=== PATIENT | female | born 1980 | race Caucasian/White ===

== ENCOUNTER 2019-02-23 10:17 | Inpatient (IN) | payer MEDICAID ==
[~2019-02-23] VITALS: Ht 152.4 cm; Wt 112.2 kg
[~2019-02-23 10:17] MED LIST: HYDR250V5 IM; IBUP-1542 PO; PRENAT PO
[2019-02-23 10:33] VITALS: BP 182/103; PULSE 98; RESP 18; Ht 152.4 cm; Wt 112.2 kg
[2019-02-23] MEDS ORDERED: LACTATED RINGER'S 1,000 ML IV SCH (14:12)
[2019-02-23] MEDS ORDERED: LACTATED RINGER'S 1,000 ML IV PRN (14:12)
[2019-02-23] MEDS ORDERED: MISOPROSTOL 200 MCG TAB PR PRN ×2 (14:30→22:00)
[2019-02-23] MEDS ORDERED: OXYTOCIN 30 UNITS/LR 500 ML IV PRN ×2 (14:30→22:00)
[2019-02-23] MEDS ORDERED: OXYTOCIN 30 UNITS/LR 500 ML IV SCH ×4 (14:30→21:37)
[2019-02-23] MEDS ORDERED: IBUPROFEN 600 MG TAB PO PRN (14:30)
[2019-02-23] MEDS ORDERED: BUTORPHANOL 2 MG INJ IV PRN (14:30)
[2019-02-23] MEDS ORDERED: AMPICILLIN 2 GM/NS (PMX) 100 ML IV ONE (14:30)
[2019-02-23] MEDS ORDERED: CARBOPROST 250 MCG INJ IM PRN ×2 (14:30→22:00)
[2019-02-23] MEDS ORDERED: METHYLERGONOVINE 0.2 MG INJ IM PRN ×2 (14:30→22:00)
[2019-02-23] MEDS ORDERED: LIDOCAINE 1% (MPF) 30 ML INJ INJ PRN (14:30)
[2019-02-23] MEDS ORDERED: MISOPROSTOL 50 MCG CAPSULE PO PRN (16:30)
[2019-02-23] MEDS ORDERED: AMPICILLIN 1 GM/NS (PMX) 50 ML IV SCH (18:30)
--- NOTE | 2019-02-23 19:58 | HP ---
Date/Time of Note Date/Time of Note DATE: 02/23/19 TIME: 19:55 OB - History Hx of Present Free Text/Dictation 38 years old is 0-3 with single intrauterine at 39 weeks with a ELLEN of 03/01/2019 complaining of uterine contractions. She states good movement. She denies nausea, vomiting, shortness of breath, chest pain, headache, visual changes, vaginal bleeding or LOF. Chief Complaint: Uterine contractions Estimated Due Date: Mar 01, 2019 : 6 Para: 3 Spontaneous : 2 Therapeutic : 0 Ultrasounds: No ultrasounds Obstetrical Complications: None Medical Complications: None Past Family/Social History * Past Medical, Surgical, Family and Obstetric Histories reviewed from chart. Blood Type: O+ Rubella: immune RPR/VDRL: Negative GBS Status: Positive HBsAG: Negative OB Admission Exam Vital Signs Vital Signs Vital Signs Date Temp Pulse Resp B/P (MAP) Pulse Ox O2 O2 Flow FiO2 Time Delivery Rate 02/23/19 98.1 98 18 182/103 Room Air 10:33 (129) Physical Exam HEENT: WNL Heart: Rhythm Normal Abdomen: WNL Extremities: Normal Cervical Dilatation: 1cm Effacement: 50% Station: -2 Membranes: Intact Heart Rate: 130's Accelerations: Accelerations Present Decelerations: No Decelerations Varibility: Moderate Contractions on Admission: < 5 Minutes Apart Intensity: Moderate Last 72 hours Lab Results CBC & BMP 02/23/19 11:35 Liver Function Test 02/23/19 11:35 Alanine Aminotransferase (ALT/SGPT) 9 L Albumin 3.4 Alkaline Phosphatase 173 H Aspartate Amino Transf (AST/SGOT) 23 Direct Bilirubin 0.00 Total Protein 6.7 OB Assessment/Plan Other plan: 38 years old -0-2-3 with oligohydramnios (5.9 cm) in early labor - FHR: No sign of metabolic acidosis- Category I - Continuous EFM, toco - CBC, blood type and screen - Cytotec per protocol - Analgesia options with R/B/A discussed in detail with patient - Epidural per patient request - Please see the orders - O+/Rubella: Immune - GBS:Positive, ampicillin ordered Admission, procedures, expectations, risks and possible complications have been discussed in detail with the patient. Risk of vaginal delivery including but not limited to bleeding, infection, cervical laceration, placental retention, injury to fetus, blood transfusion, blood transfusion related infection, risk of anesthesia, adhesion, cervical laceration, episiotomy/laceration, possible ce sarean delivery with risk of bleeding, infection, injury to other organs (bowel, bladder, ureter, vessels, nerves), injury to fetus, blood transfusion, blood transfusion related infection, risk of anesthesia, scar and hernia formation, needs for future , removal of uterus or any other indicated surgery discussed with the patient. She expressed understanding and repeats the risks. All of her questions were answered. She signed the informed consent. PHYSICIAN'S VERIFICATION OF INFORMED CONSENT The patient was counseled regarding the procedure, its indications, risks, potential complications and alternatives and any questions were answered. Consent was obtained. PLANNED PROCEDURE/TREATMENT: Vaginal delivery, episiotomy, repair of laceration possible delivery [] PHYSICIAN'S VERIFICATION OF INFORMED CONSENT FOR BLOOD TRANSFUSION: There is a reasonable possibility that blood transfusion will be necessary as a result of the patient's procedure. I have discussed the following with the patient/patient's legal fulfillment representative: An explanation of the benefits and risks of the transfusion of blood or blood products and the possible alternatives. All questions have been answered to the patient's satisfaction. INFORMED CONSENT:The patient has been informed of: The nature of the proposed care, treatment, services, medications, interventions or procedures. Potential benefits, risks or side effects, including potential problems related to recuperation. The likelihood of achieving care treatment and service goals. Reasonable alternatives to the proposed care, treatment and service. The relevant risks, benefits and side effects related to alternatives, incl uding the possible results of not receiving care, treatment and services. When indicated, any limitations on the confidentiality of information learned from or about the patient. If appropriate, the risks, benefits and alternatives of the drugs to be used for sedation/analgesia including moderate sedation. If appropriate, patient has been provided information on the risks, benefits and alternatives to the transfusion of blood and/or blood products. If appropriate, patient has been provided information regarding the [employer]ets[employer] Blood Act. JACQUE SCHROEDER Feb 23, 2019 19:58
--- NOTE | 2019-02-23 20:01 | LDN ---
Date/Time of Note Date/Time of Note DATE: 02/23/19 TIME: 19:58 Delivery Summary 38 years old at 39 weeks delivered a viable female over intact perineum. Nose and mouth suctioned. Rest of body delivered. Cord clamped and cut after stopping pulsation. Placenta delivered intact and spontaneously with three-vessel cord. Patient tolerated procedure well Time of delivery 19:26 Weight 7 pound 9 at 1 minutes and 9 at 5 minutes EBL 200 ml Weeks of Gestation 39 weeks Placenta Delivered: Spontaneously Meconium: none Episiotomy: No Anesthesia type: Epidural Estimated blood loss: 200 Sponge & Needle done & correct: Yes All needle counts correct: Yes Any foreign bodies felt in the: No Infant Delivery Information Sex Sex: female Apgars 1 Minute: 9 5 Minute: 9 10 Minute: 10 Suctioning Nose & mouth suctioned at lela: Yes Umbilical Cord Umbilical cord with: 3 Vessels Cord presentations: no nuchal cord Cord Blood was obtained: Yes Mother & Baby Disposition Disposition Mom & Baby to Maternity; Good: Yes JACQUE SCHROEDER Feb 23, 2019 20:00
[2019-02-23] MEDS ORDERED: LACTATED RINGER'S 1,000 ML IV* SCH (21:37)
[2019-02-23] MEDS ORDERED: ACETAMINOPHEN 325 MG TAB PO PRN ×2 (22:00)
[2019-02-23] MEDS ORDERED: WITCH HAZEL/GLYCERIN PAD PR PRN (22:00)
[2019-02-23] MEDS ORDERED: MAGNESIUM HYDROXIDE 30ML CUP PO PRN (22:00)
[2019-02-23] MEDS ORDERED: SENNA/DOCUSATE NA (8.6MG/50MG) TAB PO PRN (22:00)
[2019-02-23] MEDS ORDERED: BENZOCAINE 20% 56 ML SPRAY TOP PRN (22:00)
[2019-02-23] MEDS ORDERED: ONDANSETRON 4 MG INJ IV PRN (22:00)
[2019-02-23] MEDS ORDERED: DIBUCAINE 1% 30 GM OINT TOP PRN (22:00)
[2019-02-23 22:10] VITALS: BP 144/71; PULSE 74; RESP 20
[2019-02-23] MEDS: LACTATED RINGER'S 1,000 ML IV* SCH (22:10)
[2019-02-23] MEDS: IBUPROFEN 600 MG TAB PO PRN (23:49)
[2019-02-23] MEDS: LANOLIN HPA 1 PKT TOP PRN (23:59)
[2019-02-24 04:00] VITALS: BP 120/59; PULSE 72; RESP 18
[2019-02-24] MEDS: LACTATED RINGER'S 1,000 ML IV* SCH (06:10)
[2019-02-24] MEDS: IBUPROFEN 600 MG TAB PO PRN ×2 (06:14→17:12)
[2019-02-24 08:30] VITALS: BP 124/85; PULSE 68; RESP 20
[2019-02-24] MEDS: LANOLIN HPA 1 PKT TOP PRN (10:22)
[2019-02-24 12:00] VITALS: BP 120/58; PULSE 89; RESP 20
--- NOTE | 2019-02-24 15:31 | QN ---
Documentation Comment day #1 Status post Patient stable and afebrile Vital signs stable VS - Last 72 Hours, by Label Date Temp Pulse Resp B/P (MAP) Pulse Ox O2 O2 Flow FiO2 Time Delivery Rate 02/24/19 98.1 72 18 120/59 Room Air 04:00 (79) 02/23/19 98.0 74 20 144/71 Room Air 22:10 (95) 02/23/19 98.1 98 18 182/103 Room Air 10:33 (129) Hematology - 72 Hrs Test 02/23/19 11:35 02/24/19 08:07 Hematocrit 36.1 % (37.0-47.0) L 38.2 % (37.0-47.0) Hemoglobin 12.1 g/dl (12.0-16.0) 12.5 g/dl (12.0-16.0) Mean Corpuscular 29.5 pg (29.0-33.0) 28.8 pg (29.0-33.0) L Hemoglobin Mean Corpuscular 33.5 g/dl (32.0-37.0) 32.7 g/dl (32.0-37.0) Hemoglobin Concent Mean Corpuscular Volume 88.0 fl (82.0-101.0) 88.0 fl (82.0-101.0) Mean Platelet Volume 12.5 fl (7.4-10.4) H 13.0 fl (7.4-10.4) H Platelet Count 144 10^3/UL (140-415) 141 10^3/UL (140-415) Red Blood Count 4.10 10^6/ul (4.20-5.40) 4.34 10^6/ul (4.20-5.40) L Red Cell Distribution 13.6 % (11.5-14.5) 13.8 % (11.5-14.5) Width White Blood Count 8.7 10^3/ul (4.8-10.8) # 12.4 10^3/ul (4.8-10.8) #H Chemistry Test 02/23/19 11:35 Sodium Level 138 mmol/L (135-144) Potassium Level 3.9 mmol/L (3.5-5.1) Chloride Level 107 mmol/L (97-110) Carbon Dioxide Level 24 mmol/L (21-31) Anion Gap 7 (5-13) Blood Urea Nitrogen 9 mg/dl (7-20) Creatinine 0.47 mg/dl (0.44-1.00) Est Glomerular Filtrat Rate mL/min > 60 mL/min (>60) Glucose Level 87 mg/dl (70-220) Uric Acid 6.0 mg/dl (3.1-7.9) Calcium Level 9.4 mg/dl (8.4-10.2) Total Bilirubin 0.6 mg/dl (0.2-1.3) Direct Bilirubin 0.00 mg/dl (0.00-0.20) Indirect Bilirubin 0.6 mg/dl (0-1.1) Aspartate Amino Transf (AST/SGOT) 23 IU/L (15-46) Alanine Aminotransferase (ALT/SGPT) 9 IU/L (13-69) L Alkaline Phosphatase 173 IU/L (42-121) H Total Protein 6.7 g/dl (6.1-8.1) Albumin 3.4 g/dl (3.3-4.9) Globulin 3.30 g/dl (1.3-3.2) H Albumin/Globulin Ratio 1.03 Abdomen soft, fundus firm Perineum intact Extremities nontender Assessment and plan Patient stable and doing well Continue with routine care DWIGHT MARROQUIN MD Feb 24, 2019 15:31
[2019-02-24 15:40] VITALS: BP 134/81; PULSE 80; RESP 20
[2019-02-24 16:00] VITALS: BP 134/81; PULSE 80; RESP 22
[2019-02-24 20:05] VITALS: BP 130/71; PULSE 82; RESP 18
[2019-02-25 03:33] VITALS: BP 134/63; PULSE 78; RESP 18
[2019-02-25 08:00] VITALS: BP 129/75; PULSE 77; RESP 18
--- NOTE | 2019-02-25 10:30 | PD.PPDC ---
APPOINTMENT CLERK Discharge Instruction Diagnosis [id number] Final Diagnosis: Xdbgb4s s/p Condition Hhtem9Em Patient Condition: Qaaao1u Stable Diet Muohy8Sv Diet: Dcdub7p Resume Regular Diet Activity/Restrictions Vevuw5My Activity: Nbdal9f May Shower Gedde4Ko Restrictions: Bowfp3i No Lifting No Sexual Activity Nothing in the Vagina No [place] No Tampons, douche Follow-up Follow-up with Physician: 2, Week/Weeks Return to clinic for [id number] MANAGER STATISTICAL PROGRAMMING Instructions: Gfaro8s Fever greater than 101 Chills Worsening abdominal pain Excessive Vaginal Bleeding More than 2 pads per hour Unable to tolerate diet [id number] OB Instructions: Acfta1c Breast Tenderness Depression Blurried Vision Headache DONY WEISS MD Feb 25, 2019 10:30
--- NOTE | 2019-02-25 10:33 | DS ---
Date/Time of Note Date/Time of Note DATE: 02/25/19 TIME: 10:32 Obstetrical Discharge Record Final Diagnosis Final Diagnosis: Term delivered Vaginal Delivery Obstetrical Delivery: Spontaneous Complications Augmentation: No Induction: No Rupture of Membranes: No Condition on Discharge Physical Assessment Last Vitals: VSS afebrile Voiding: Yes Bowel Movement: Yes Breast: Soft, non-tender Fundus: Firm Abdomen and Incision: n/a Episiotomy: n/a Calf Tenderness: No Patient Condition: Stable DONY WEISS MD Feb 25, 2019 10:33
[2019-02-25 15:50] VITALS: BP 117/61; PULSE 79; RESP 18
--- NOTE | 2019-02-26 21:48 | DELSUM ---
Delivery Summary A-C Datetime Report Generated by CPN: 02/26/2019 21:48 DELIVERY PERSONNEL Core Inserter: Christiana Tyler MATERNAL INFORMATION Delivery Anesthesia: None Medications in Delivery: OXYTOCIN 30UNITS IN 500ML LR Delivery QBL (ml): 150 Placenta Cultured: No Maternal Complications: None LABOR SUMMARY EDC: 03/01/2019 00:00 No. Babies in Womb: 1 Attempted: No Labor Anesthesia: None LABOR INFORMATION Reason for Induction: Other Reason for Induction- Other: LOW IRENA Onset of Labor: 02/23/2019 17:00 Complete Dilatation: 02/23/2019 19:26 Cervical Ripening Agents: Cytotec @ 50 Oxytocin: N/A Group B Beta Strep: Positive Antibiotics # of Doses: Ampicillin x2 Antibiotics Time of Last Dose: 02/23/2019 18:30 Steroids Given: None Reason Steroids Not Administered: Not Applicable MEMBRANES Membranes Rupture Method: Spontaneous Rupture of Membranes: 02/23/2019 19:26 Length of Rupture (hr): 0.00 Amniotic Fluid Color: Clear Amniotic Fluid Amount: Moderate Amniotic Fluid Odor: None STAGES OF LABOR Stage 1 hr: 2 Stage 1 min: 26 Stage 2 hr: 0 Stage 2 min: 0 Stage 3 hr: 0 Stage 3 min: 2 Total Time in Labor hr: 2 Total Time in Labor min: 28 VAGINAL DELIVERY Episiotomy: None Laceration Extension: N/A Laceration Type: None Laceration Repair: Not Applicable Initial Vag Sponge Count: 10 Final Vag Sponge Count: 10 Initial Vag Sharps Count: 1 Final Vag Sharps Count: 1 Sponge Count Correct: Yes; Vaginal Sweep Performed Sharps Count Correct: Yes BABY A INFORMATION Infant Delivery Date/Time: 02/23/2019 19:26 Method of Delivery: Vaginal Born in Route : No : N/A Forceps: N/A Vacuum Extraction: N/A Shoulder Dystocia : N/A SHOULDER DYSTOCIA BABY A Infant Delivery Date/Time: 02/23/2019 19:26 PRESENTATION/POSITION BABY A Presentation: Cephalic Cephalic Presentation: Vertex Vertex Position: Left Occipital Anterior Breech Presentation: N/A PLACENTA INFORMATION BABY A Placenta Delivery Time : 02/23/2019 19:28 Placenta Method of Delivery: Spontaneous Placenta Status: Delivered SCORES BABY A Heart Rate 1 min: >100 bpm Resp Effort 1 min: Good Cry Reflex Irritability 1 min: Cough/Sneeze/Pulls Away Muscle Tone 1 min: Active Motion Color 1 min: Body [place], Extremit Blue Resuscitation Effort 1 min: Tactile Stimulation SCORE 1 MIN: 9 Heart Rate 5 min: >100 bpm Resp Effort 5 min: Good Cry Reflex Irritability 5 min: Cough/Sneeze/Pulls Away Muscle Tone 5 min: Active Motion Color 5 min: Body [place], Extremit Blue Resuscitation Effort 5 min: Tactile Stimulation SCORE 5 MIN: 9 INFANT INFORMATION BABY A Gestational Age at Delivery: 39.1 Gestational Status: Full Term- 39- 40.6 Weeks Outcome : Liveborn Infant Condition : Stable Sex: Female IDENTIFICATION/MEDS BABY A ID Band Number: [id number] ID Band Location: Right Leg; Left Arm Sensor Applied: Yes Sensor Number: [id number] Sensor Location : Cord Clamp Vitamin K Given : Not Given Erythromycin Given: Not Given WEIGHT/LENGTH BABY A Infant Birthweight (gm): 3175 Weight (lb): 7 Infant Weight (oz): 0 Length (in): 18.50 Length (cm): 46.99 CORD INFORMATION BABY A No. Cord Vessels: 3 Nuchal Cord : N/A Cord Blood Taken: Yes Banking/Donate Info: NONE Infant Suction: Mouth; Nose ASSESSMENT BABY A Complications: Oligohydramnios Infant Complications- Other: LOW IRENA Physical Findings at Delivery: Caput Succedaneum; Molding of the Head Infant Respirations: Appears Normal [employer] Director/ALS Called : No Care By: MARK LYNN/DANIELA Sanches RN Transferred To: Remains with Mother
== END 2019-02-25 20:15 | disposition home or self-care (01) | DRG 807 ==
LOC: L-D 10:17 → OBT 10:17 → L-D 10:24 → OBT 14:13 → L-D 14:15 → PP1 22:03
PROVIDERS: ADMIT Obstetrics & Gynecology; ATTEND Obstetrics & Gynecology
PROC: 10E0XZZ Delivery of Products of Conception, External Approach (ICD-10-PCS; principal; 2019-02-23)
DX: O41.03X0 Oligohydramnios, third trimester, not applicable or unspecified (principal); Z37.0 Single live birth; O99.824 Streptococcus B carrier state complicating childbirth; Z3A.39 39 weeks gestation of pregnancy
CPT/HCPCS: 76815; 76818; 80053; 81001; 84560; 85025; 85384; 85610; 85730; 86592; 86850; 86900; 86901; G0463; J0290; J2590; J7120